=== PATIENT | male | born 1980 | race Hispanic/Latino ===

== ENCOUNTER 2022-05-19 21:52 | Emergency (ER) | payer OTHER, SELFPAY ==
[2022-05-19] VITALS (8 sets, daily range): BP systolic 187; BP diastolic 93; PULSE 112–123; RESP 12–41; TEMP 39.6; O2SAT 96–100
--- NOTE | 2022-05-19 22:13 | DI.RAD.S_ITS ---
PROCEDURE: XR CHEST 1V INDICATIONS: eval for PNA TECHNIQUE: One view of the chest was acquired. COMPARISON: None. FINDINGS: Surgical changes and devices: None. Lungs and pleura: Lungs are clear considering reduced inspiratory volume. No pleural effusions or pneumothorax. Mediastinum: Mediastinal contours appear normal. Heart size is normal. Bones and chest wall: No suspicious bony lesions. Overlying soft tissues appear unremarkable. IMPRESSION: Reduced inspiratory volume, crowding of the bronchovascular markings as result. A definite focus of pneumonia is not seen. Dictated by: Jorge Luis Steward M.D. on 05/19/2022 at 22:51 Approved by: Jorge Luis Steward M.D. on 05/19/2022 at 22:52
[2022-05-19] MEDS: SODIUM CHLORIDE 0.9% 1,000 ML 1000 ML IV (22:43)
[2022-05-19] MEDS: ACETAMINOPHEN 325 MG TABLET 650 MG PO (22:44)
[2022-05-19 22:50] LABS: Add Manual Diff / Slide Review NO; Basophils Absolute Auto 0 /uL (0-100); Basophils Percent Auto 0.1 % (0-2); Eosinophils Absolute Auto 0 /uL (0-450); Eosinophils Percent Auto 0.4 % (2-4); Hematocrit 46.3 % (41-53); Hemoglobin 15.6 g/dL (13.5-17.5); Lymphocytes Absolute Auto 500 /uL (1100-4500); Lymphocytes Percent Auto 6.1 % (25-40); Mean Corpuscular HGB Conc 33.6 % (30-36); Mean Corpuscular Volume 92.1 fL (80-100); Monocytes Absolute Auto 300 /uL (0-900); Monocytes Percent Auto 3.1 % (3-14); Neutrophils Absolute Auto 7600 /uL (1500-7000); Neutrophils Percent Auto 90.3 % (50-75); Platelet Count 187 X10^3/uL (150-400); Red Blood Cell Count 5.02 X10^6/uL (4.5-5.9); Red Cell Distribution Width 13.5 % (11.6-14.8); White Blood Cell Count 8.4 X10^3/uL (4.5-11.0)
[2022-05-19 22:58] LABS: Lactate (Lactic Acid) 1.7 mmol/L (0.7-2.1); Lipase 47 U/L (23-300)
[2022-05-19 22:59] LABS: Alanine Aminotransferase 20 IU/L (<50); Albumin 3.9 g/dL (3.5-5.0); Albumin Globulin Ratio 1.1 (1.0-2.8); Alkaline Phosphatase 90 U/L (38-126); Aspartate Aminotransferase 27 IU/L (17-59); BUN Creatinine Ratio 15.1 (6-22); Bilirubin Total 0.6 mg/dL (0.2-1.3); Blood Urea Nitrogen 21 mg/dL (9-20); Calcium 8.9 mg/dL (8.4-10.2); Carbon Dioxide 24 mmol/L (22-32); Chloride 105 mmol/L (98-107); Estimated Glomerular Filt Rate > 60 mL/min (>60); Globulin 3.4 g/dL (1.7-4.1); Glucose 230 mg/dL (70-100); HEMOLYSIS 19 (0-50); Potassium 4.4 mmol/L (3.4-5.1); Sodium 138 mmol/L (137-145); Total Protein 7.3 g/dL (6.3-8.2)
[2022-05-19 23:03] LABS: COVID19 -Nasal RAPID Negative (Negative)
[2022-05-19 23:16] LABS: Procalcitonin 0.58 ng/mL (<0.5)
[2022-05-20] VITALS (10 sets, daily range): BP systolic 145–157; BP diastolic 83; PULSE 113–149; RESP 11–68; TEMP 38.8–39.5; O2SAT 95–99
--- NOTE | 2022-05-20 00:10 | ED.GENADULT ---
HPI - General Adult General Chief complaint: Fever Stated complaint: Chills, Time Seen by Provider: 05/19/22 22:11 Source: patient Mode of arrival: Ambulatory History of Present Illness HPI narrative: Patient is a 41-year-old male. Otherwise healthy. [facility] He states that earlier today he started have chills. He went and laid down for awhile but could not get warm. He went and sat down in his truck with the heat on instill could not get warm. He recently finished a course of antibiotics because of some infections in his toes. He is not having any pain in his toes and his actually states that the areas look much better than what they had looked like in the past. He denies chest pain. Is having a headache. No neck pain. No sinus congestion. No fullness in his ears. No sore throat. No coughing. No abdominal pain. No nausea vomiting or diarrhea. No urinary symptoms. No skin rashes. Has not tried anything for the symptoms prior to arrival. Related Data Allergies Allergy/AdvReac Type Severity Reaction Status Date / Time No Known Drug Allergies Allergy Verified 05/20/22 00:56 Review of Systems Review of Systems ROS Unobtainable: All systems reviewed & are unremarkable except as noted in HPI and below Patient History Medical History Cellulitis Social History Smoking Status: Never smoker Smoking Status: Never smoker alcohol intake frequency: 0-2 drinks per day Substance Use Type: does not use Exam Initial Vital Signs Initial Vital Signs: Vital Signs Pulse Rate 114 H 05/19/22 22:00 Blood Pressure 187/93 H 05/19/22 22:00 Pulse Oximetry 100 05/19/22 22:00 Oxygen Delivery Method 05/19/22 22:00 Const General: cooperative, comfortable, well developed and well groomed [facility] Head: normal to inspection and normocephalic Resp Effort & Inspection: normal respiratory effort Auscultation: clear to auscultation bilaterally Cardio Rate: tachycardic Rhythm: regular rhythm GI Inspection: normal to inspection Skin Other: Patient has 2 ulcerations 1 on each great toe. No surrounding erythema. No drainage. There is no other rashes noted. Neuro General: patient alert, patient awake and moves all extremities Extrem General: normal to inspection and capillary refill normal Psych Appearance: grossly normal and well kempt Course Orders Ordered: ED Orders 05/19/22 22:00 COVID19 -Nasal RAPID/Pre-Proc Stat 05/19/22 22:13 XR chest 1V Stat EKG-12 Lead Stat 05/19/22 22:30 Complete Blood Count AUTO DIFF Stat Comprehensive Metabolic Panel Stat Lactate (Lactic Acid) Stat Lipase Stat Procalcitonin Stat 05/19/22 22:58 Blood Culture Stat 05/19/22 23:30 Urine Culture Stat 05/20/22 00:55 Influenza A & B (PCR) Stat Discontinued Medications Acetaminophen (Acetaminophen 325 Mg Tablet) 650 mg PO NOW ONE Stop: 05/19/22 22:13 Last Admin: 05/19/22 22:44 Dose: 650 mg Documented By: DANIELLE Sodium Chloride (Normal Saline 0.9%) 1,000 mls @ 1,000 mls/hr IV BOLUS ONE Stop: 05/19/22 23:11 Last Infusion: 05/19/22 23:40 Dose: 0 mls/hr Documented By: Admin: 05/19/22 22:43 Dose: 1,000 mls/hr Documented By: DANIELLE Ibuprofen (Ibuprofen 400 Mg Tablet) 800 mg PO NOW ONE Stop: 05/20/22 00:14 Last Admin: 05/20/22 00:39 Dose: 800 mg Documented By: DORON Vital Signs Vital signs: Vital Signs - 8 hr 05/19/22 22:04 05/19/22 22:44 05/19/22 22:40 Temperature 103.2 F H 103.2 F H Pulse Rate 112 H 123 H Respiratory Rate 18 24 Blood Pressure 187/93 H Pulse Oximetry 100 99 Oxygen Delivery Method Room Air 05/19/22 22:55 05/19/22 23:10 05/19/22 23:20 Temperature Pulse Rate 117 H 118 H 118 H Respiratory Rate 12 18 16 Blood Pressure Pulse Oximetry 99 96 97 Oxygen Delivery Method Room Air Room Air Room Air 05/20/22 00:12 05/19/22 23:36 05/20/22 00:00 Temperature Pulse Rate 149 H 120 H 122 H Respiratory Rate 68 H 41 H 31 H Blood Pressure Pulse Oximetry 96 97 99 Oxygen Delivery Method Room Air 05/20/22 00:30 05/20/22 00:52 05/20/22 00:52 Temperature 103.1 F H Pulse Rate 129 H 128 H Respiratory Rate 19 20 Blood Pressure 157/83 H Pulse Oximetry 98 Oxygen Delivery Method Room Air 05/20/22 01:00 05/20/22 01:30 05/20/22 02:06 Temperature 101.8 F H Pulse Rate 132 H 119 H Respiratory Rate 11 L 30 H Blood Pressure Pulse Oximetry 96 Oxygen Delivery Method 05/20/22 02:25 05/20/22 02:00 05/20/22 02:26 Temperature 101.8 F H Pulse Rate 114 H Respiratory Rate 13 Blood Pressure 145/83 H Pulse Oximetry 95 Oxygen Delivery Method 05/20/22 02:26 Temperature Pulse Rate 113 H Respiratory Rate 18 Blood Pressure Pulse Oximetry Oxygen Delivery Method Medical Decision Making Medical Records Medical records reviewed: Yes I reviewed the patient's medical records. Lab Data Lab results reviewed: Yes I reviewed the patient's lab results. Result diagrams: 05/19/22 22:30 05/19/22 22:30 Labs: Lab Results 05/19/22 05/19/22 05/19/22 Range/Units 22:00 22:30 22:30 WBC 8.4 (4.5-11.0) X10^3/uL RBC 5.02 (4.5-5.9) X10^6/uL Hgb 15.6 (13.5-17.5) g/dL Hct 46.3 (41-53) % MCV 92.1 (80-100) fL MCH 31.0 (26-34) PG MCHC 33.6 (30-36) % RDW 13.5 (11.6-14.8) % Plt Count 187 (150-400) X10^3/uL Neut % (Auto) 90.3 H (50-75) % Lymph % (Auto) 6.1 L (25-40) % [place] % (Auto) 3.1 (3-14) % Eos % (Auto) 0.4 L (2-4) % Baso % (Auto) 0.1 (0-2) % Neut # (Auto) 7600 H (3279-5562) /uL Lymph # (Auto) 500 L (0642-1049) /uL [place] # (Auto) 300 (0-900) /uL Eos # (Auto) 0 (0-450) /uL Baso # (Auto) 0 (0-100) /uL Sodium 138 (137-145) mmol/L Potassium 4.4 (3.4-5.1) mmol/L Chloride 105 (98-107) mmol/L Carbon Dioxide 24 (22-32) mmol/L BUN 21 H (9-20) mg/dL Creatinine 1.39 H (0.66-1.25) mg/dL Estimated GFR > 60 (>60) mL/min BUN/Creatinine Ratio 15.1 (6-22) Glucose 230 H (70-100) mg/dL Lactate (0.7-2.1) mmol/L Calcium 8.9 (8.4-10.2) mg/dL Total Bilirubin 0.6 (0.2-1.3) mg/dL AST 27 (17-59) IU/L ALT 20 (<50) IU/L Alkaline Phosphatase 90 (38-126) U/L Total Protein 7.3 (6.3-8.2) g/dL Albumin 3.9 (3.5-5.0) g/dL Globulin 3.4 (1.7-4.1) g/dL Albumin/Globulin Ratio 1.1 (1.0-2.8) Lipase (23-300) U/L Procalcitonin (<0.5) ng/mL SARS-CoV-2 (PCR) Negative (Negative) Influenza A (RT-PCR) (NEGATIVE) Influenza B (RT-PCR) (NEGATIVE) 05/19/22 05/19/22 05/20/22 Range/Units 22:30 22:30 00:55 WBC (4.5-11.0) X10^3/uL RBC (4.5-5.9) X10^6/uL Hgb (13.5-17.5) g/dL Hct (41-53) % MCV (80-100) fL MCH (26-34) PG MCHC (30-36) % RDW (11.6-14.8) % Plt Count (150-400) X10^3/uL Neut % (Auto) (50-75) % Lymph % (Auto) (25-40) % [place] % (Auto) (3-14) % Eos % (Auto) (2-4) % Baso % (Auto) (0-2) % Neut # (Auto) (0467-9804) /uL Lymph # (Auto) (6597-3482) /uL [place] # (Auto) (0-900) /uL Eos # (Auto) (0-450) /uL Baso # (Auto) (0-100) /uL Sodium (137-145) mmol/L Potassium (3.4-5.1) mmol/L Chloride (98-107) mmol/L Carbon Dioxide (22-32) mmol/L BUN (9-20) mg/dL Creatinine (0.66-1.25) mg/dL Estimated GFR (>60) mL/min BUN/Creatinine Ratio (6-22) Glucose (70-100) mg/dL Lactate 1.7 (0.7-2.1) mmol/L Calcium (8.4-10.2) mg/dL Total Bilirubin (0.2-1.3) mg/dL AST (17-59) IU/L ALT (<50) IU/L Alkaline Phosphatase (38-126) U/L Total Protein (6.3-8.2) g/dL Albumin (3.5-5.0) g/dL Globulin (1.7-4.1) g/dL Albumin/Globulin Ratio (1.0-2.8) Lipase 47 (23-300) U/L Procalcitonin 0.58 H (<0.5) ng/mL SARS-CoV-2 (PCR) (Negative) Influenza A (RT-PCR) Flu a negative (NEGATIVE) Influenza B (RT-PCR) Flu b negative (NEGATIVE) Urine Dip Bedside Urine Glucose 100 mg/dl Bedside Urine Bilirubin - Negative Bedside Urine Ketone - Negative Urine Specific [place] 1.025 Bedside Urine Occult Blood +++ Bedside Urine pH 6 Bedside Urine Protein +++ 300 Bedside Urine Urobilinogen +/- 1mg Bedside Urine Nitrite - Negative Bedside Urine Leukocytes - Negative Esterase Point of care testing: Urine Dip Bedside Urine Glucose 100 mg/dl Bedside Urine Bilirubin - Negative Bedside Urine Ketone - Negative Urine Specific [place] 1.025 Bedside Urine Occult Blood +++ Bedside Urine pH 6 Bedside Urine Protein +++ 300 Bedside Urine Urobilinogen +/- 1mg Bedside Urine Nitrite - Negative Bedside Urine Leukocytes - Negative Esterase Imaging Data Chest x-ray: Radiologist's Impression: [address] [address] XRay Report Signed Patient: Ko Mahajan MR#: [id number] : 1980 Acct:[id number] Age/Sex: 41 / M Date of Service: 05/19/22 Loc: ED Accession Number: [id number] ?? Procedure: XR chest 1V Ordering Provider: Adrian Cortez D.O. PROCEDURE:? XR CHEST 1V ? INDICATIONS:? eval for PNA ? TECHNIQUE:? One view of the chest was acquired.? ? COMPARISON:? None. ? FINDINGS:? ? Surgical changes and devices:? None.? ? Lungs and pleura:? Lungs are clear considering reduced inspiratory volume.? No pleural effusions or pneumothorax.? ? Mediastinum:? Mediastinal contours appear normal.? Heart size is normal.? ? Bones and chest wall:? No suspicious bony lesions.? Overlying soft tissues appear unremarkable.? ? IMPRESSION:? Reduced inspiratory volume, crowding of the bronchovascular markings as result.? A definite focus of pneumonia is not seen. ? ? Dictated by: Jorge Luis Steward M.D. on 05/19/2022 at 22:51 ? ? Approved by: Jorge Luis Steward M.D. on 05/19/2022 at 22:52? ECG Data Attestation: I personally reviewed and interpreted this ECG as follows: Interpretation: Sinus tachycardia Ventricular rate 116 Normal axis Normal QRS Normal QTC No ST T wave changes MDM Narrative Medical decision making narrative: Patient is febrile and tachycardic. Has an elevated procalcitonin but a normal lactate and no leukocytosis. His heart rate and fever did improve with Tylenol and ibuprofen. I suspect that his tachycardia is related to the fever. I have no specific etiology for his fever. He clinically does not have pneumonia on his chest x-ray is not definitive for pneumonia. Low suspicion for meningitis. No abdominal symptoms. No urinary symptoms. He does have ulcerations on his toes however there is no surrounding erythema. There is no other rash. His actually states that these symptoms have improved. Flu is negative. COVID is negative. There is no specific indication for any antibiotics. Had a discussion with him and his regarding the symptoms. No indication for admission to the hospital. Will have him continue with Tylenol and ibuprofen. He was given strict return precautions. He expressed understanding and agreement. Discharge Plan Departure Patient Disposition: Home Clinical Impression: Fever of unknown origin Instructions: DI for Fever (Symptom) -- Adult Activity Restrictions/Additional Instructions: Your last dose of Tylenol was given at 1045 and your last dose of ibuprofen was given at 1245. You can do Tylenol every 4 hours and ibuprofen every 8 hours. Sure to stay hydrated. If you start to develop specific symptoms like we discussed you do need to return to the emergency department. Contact your primary doctor when you return home for a follow-up. Visit Report Forms: Patient Portal/API
[2022-05-20] MEDS: IBUPROFEN 400 MG TABLET 800 MG PO (00:39)
[2022-05-20 02:00] LABS: Influenza A - CEPHEID Flu A NEGATIVE (NEGATIVE); Influenza B - CEPHEID Flu B NEGATIVE (NEGATIVE)
== END 2022-05-20 02:29 | disposition home or self-care (01) ==
PROVIDERS: Emergency Provider Emergency Medicine
DX: R50.9 Fever, unspecified (principal); R00.0 Tachycardia, unspecified; Z20.822 Contact with and (suspected) exposure to COVID-19
CPT/HCPCS: 36415; 71045; 80053; 81003; 83605; 83690; 84145; 85025; 87040; 87077; 87086; 87147; 87186; 87502; 87635; 93005; 93010; 99284; C9803